=== PATIENT | male | born 1945 | race Caucasian/White ===

== ENCOUNTER 2018-03-16 17:53 | Emergency (ER) | payer MEDICARE, OTHER ==
--- NOTE | 2018-03-16 18:07 | ER Document Report ---
ED Medical Screen (RME) - General Chief Complaint: Urinary Problem Stated Complaint: URINARY PAIN Time Seen by Provider: 03/16/18 18:02 Mode of Arrival: Ambulatory Information source: Patient Notes: pt reports unable to void since noon today. recent kidney stone and stent removal, catheter removed today. has been unable to void since. told to come here by urologist at [facility]. denies f/n/v/d. denies pain. TRAVEL OUTSIDE OF THE [place] IN LAST 30 DAYS: No - Related Data Allergies/Adverse Reactions: Sulfa (Sulfonamide Antibiotics) Allergy (Verified 03/07/15 19:24) Past Medical History - Social History Chew tobacco use (# tins/day): No Frequency of alcohol use: None Drug Abuse: None - Past Medical History Cardiac Medical History: Reports: Hx Hypertension Renal/ Medical History: Reports: Hx Benign Prostatic Hyperplasia, Hx Kidney Stones. Denies: Hx Peritoneal Dialysis Past Surgical History: Reports: Hx Abdominal Surgery - Hernia repair - Immunizations Hx Diphtheria, Pertussis, Tetanus Vaccination: No Physical Exam - Vital signs Vitals: Temp Pulse Resp BP Pulse Ox 98.5 F 115 H 18 140/87 H 96 03/16/18 17:58 03/16/18 17:58 03/16/18 17:58 03/16/18 17:58 03/16/18 17:58 Course - Vital Signs Vital signs: Temp Pulse Resp BP Pulse Ox 98.5 F 115 H 18 140/87 H 96 03/16/18 17:58 03/16/18 17:58 03/16/18 17:58 03/16/18 17:58 03/16/18 17:58 Doctor's Discharge - Discharge Referrals: FINN IQBAL MD [Primary Care Provider] - Follow up as needed
--- NOTE | 2018-03-16 18:25 | ER Document Report ---
ED General - General Chief Complaint: Urinary Problem Stated Complaint: URINARY PAIN Time Seen by Provider: 03/16/18 18:02 Mode of Arrival: Ambulatory Notes: Patient is a 72yoM w past medical history of repeated nephrolithiasis who presents with inability to urinate after pulling his Tamayo catheter at home. The patient states that he was instructed to do so today but has been unable to urinate since that time. He recently had multiple stones retrieved from his bladder and right kidney and also had a stent placed. He notes that prior to having the Tamayo catheter replaced here in the emergency room he had a dull, throbbing, constant pain to the suprapubic area of his abdomen. Nothing improves or worsens that pain except having bladder decompressed with a Tamayo catheter. He does have a history of BPH but denies any history of urinary tension in the past. He did contact his urologist who told him to come to the emergency department to have a Tamayo catheter replaced. TRAVEL OUTSIDE OF THE [place] IN LAST 30 DAYS: No - Related Data Allergies/Adverse Reactions: Sulfa (Sulfonamide Antibiotics) Allergy (Verified 03/07/15 19:24) Past Medical History - General Information source: Patient - Social History Smoking Status: Current Every Day Smoker Chew tobacco use (# tins/day): No Frequency of alcohol use: None Drug Abuse: None Family History: Reviewed & Not Pertinent Patient has suicidal ideation: No Patient has homicidal ideation: No - Past Medical History Cardiac Medical History: Reports: Hx Hypertension Renal/ Medical History: Reports: Hx Benign Prostatic Hyperplasia, Hx Kidney Stones. Denies: Hx Peritoneal Dialysis Past Surgical History: Reports: Hx Abdominal Surgery - Hernia repair - Immunizations Hx Diphtheria, Pertussis, Tetanus Vaccination: No Review of Systems - Review of Systems Notes: Constitutional: Negative for fever. HENT: Negative for sore throat. Eyes: Negative for visual changes. Cardiovascular: Negative for chest pain. Respiratory: Negative for shortness of breath. Gastrointestinal: Negative for abdominal pain, vomiting or diarrhea. Genitourinary: Positive for urinary retention Musculoskeletal: Negative for back pain. Skin: Negative for rash. Neurological: Negative for headaches, weakness or numbness. 10 point ROS negative except as marked above and in HPI. Physical Exam - Vital signs Vitals: Temp Pulse Resp BP Pulse Ox 98.5 F 115 H 18 140/87 H 96 03/16/18 17:58 03/16/18 17:58 03/16/18 17:58 03/16/18 17:58 03/16/18 17:58 Interpretation: Tachycardic - Resolved at the time of my assessment Notes: PHYSICAL EXAMINATION: GENERAL: Well-appearing, well-nourished and in no acute distress. HEAD: Atraumatic, normocephalic. EYES: Pupils equal round and reactive to light, extraocular movements intact, sclera anicteric, conjunctiva are normal. ENT: nares patent, oropharynx clear without exudates. Moist mucous membranes. NECK: Normal range of motion, supple without lymphadenopathy LUNGS: Breath sounds clear to auscultation bilaterally and equal. No wheezes rales or rhonchi. HEART: Regular rate and rhythm without murmurs ABDOMEN: Soft, nontender, normoactive bowel sounds. No guarding, no rebound. No masses appreciated. EXTREMITIES: Normal range of motion, no pitting or edema. No cyanosis. NEUROLOGICAL: No focal neurological deficits. Moves all extremities spontaneously and on command. PSYCH: Normal mood, normal affect. SKIN: Warm, Dry, normal turgor, no rashes or lesions noted. Course - Re-evaluation Re-evalutation: 03/17/18 02:13 Presentation of a well-appearing 72-year-old male with urinary retention after pulling his Tamayo catheter at home. The Tamayo catheter was placed with decompression of the bladder with output of approximately 450 cc of clear urine. A Tamayo catheter with a leg bag has been placed and the patient will follow up with his urologist for a retrial avoid. No indication for further labs or imaging. Patient has no symptoms after having Tamayo catheter placed. At this time will discharge with return precautions and follow-up recommendations. Verbal discharge instructions given a the bedside and opportunity for questions given. Medication warnings reviewed. Patient is in agreement with this plan and has verbalized understanding of return precautions and the need for primary care follow-up in the next 24-72 hours. - Vital Signs Vital signs: Temp Pulse Resp BP Pulse Ox 98.0 F 65 17 127/82 H 93 03/16/18 19:01 03/16/18 19:01 03/16/18 19:01 03/16/18 19:01 03/16/18 19:01 Discharge - Discharge Clinical Impression: Postprocedural urinary retention Condition: Good Disposition: HOME, SELF-CARE Additional Instructions: Please follow-up with your urologist tomorrow for a retrial of void. It is very common to be unable to urinate after the Tamayo catheter has been removed after a surgical procedure. Return for any additional concerns you may have including fever of greater than 101F, lower abdominal pain, vomiting, pain in your sides, no urine output into the bag, or any other symptoms that are worrisome to you. Referrals: FINN IQBAL MD [Primary Care Provider] - Follow up as needed
[2018-03-16 19:06] VITALS: BP 127/82
== END 2018-03-16 19:05 | disposition home or self-care (01) ==
LOC: ER 17:53
DX: R33.9 Retention of urine, unspecified (principal); Z98.890 Other specified postprocedural states; Z96.0 Presence of urogenital implants; Z87.442 Personal history of urinary calculi; F17.200 Nicotine dependence, unspecified, uncomplicated; I10 Essential (primary) hypertension; Z88.2 Allergy status to sulfonamides
CPT/HCPCS: 51702; 99283

== ENCOUNTER 2018-10-07 07:59 | Day surgery (SDC) | payer MEDICARE ==
[~2018-10-07 07:59] MED LIST: KETOROLAC TROMETHAMINE 0.45% 4 DROP/0.4 ML DROPERETTE OS PRN
[2018-10-07] MEDS ORDERED: MIDAZOLAM 2 MG/2 ML INJ ONE (08:30)
[2018-10-07] MEDS: TROPICAMIDE 1% OPH SOLN 3 ML OS PRN ×3 (09:00→09:20)
[2018-10-07] MEDS: BESIFLOXACIN HCL 0.6% OPH SUSP 5 ML BOTTLE OS PRN ×6 (09:00→09:55)
[2018-10-07] MEDS: TETRACAINE HCL 0.5% OPH SOLN 0.6 ML DROPERETTE OS PRN ×4 (09:00→09:34)
[2018-10-07] MEDS: CYCLOPENTOLATE 0.2%/PHENYLEPHRINE 1% OPH SOLN 2 ML OS PRN ×3 (09:00→09:20)
[2018-10-07] MEDS: TOBRAMYCIN SULFATE/DEXAMETH OPH OINTMENT 3.5 GM ONE ×4 (09:25→09:55)
[2018-10-07] MEDS: LIDOCAINE 1% INJ-PF (10 MG/ML) 30 ML SDV ONE ×2 (09:25→09:44)
[2018-10-07] MEDS: EPINEPHRINE INJ/PF 1 MG/1 ML AMPULE ONE ×2 (09:26→09:44)
[2018-10-07] MEDS: CHONDR SU A NA/HYALUR INTRAOC KIT (SURGICARE) ONE ×2 (09:27→09:44)
== END 2018-10-07 10:28 | disposition home or self-care (01) ==
LOC: SC 07:59
PROVIDERS: ATTEND Ophthalmology
DX: H25.12 Age-related nuclear cataract, left eye (principal); I10 Essential (primary) hypertension; N40.0 Benign prostatic hyperplasia without lower urinary tract symptoms; Z88.2 Allergy status to sulfonamides; Z79.899 Other long term (current) drug therapy
CPT/HCPCS: 66984; V2630; J2250; J3490 ×3; A9270; J0171; 142